=== PATIENT | male | born 1950 | race Caucasian/White ===

== ENCOUNTER 2021-02-08 10:31 | Emergency (ER) | payer MEDICARE, OTHER ==
[2021-02-08 11:35] LABS: BASOPHIL 0.2 % (0-2); EOSINOPHIL 0 % (0-7); HCT 35.9 % (42.0-52.0); HGB 10.6 g/dl (13.2-18.0); LYMPHOCYTE 15.8 % (15-48); MCH 23.7 pg (25.0-31.0); MCHC 29.5 g/dL (32.0-36.0); MCV 80.1 fL (78.0-100.0); MPV 9.6 fL (6.0-9.5); NEUTROPHIL 74.6 % (41-80); NRBC 0; PLT 275 K/uL (150-400); RBC 4.48 M/uL (4.70-6.00); RDW 17.3 % (11.5-14.0); WBC 5.1 K/uL (4.0-10.5)
[2021-02-08 11:47] LABS: LACTIC ACID 1.2 mmol/L (0.4-1.9)
[2021-02-08 11:49] LABS: ALBUMIN 3.6 g/dL (3.4-5.0); BILIRUBIN - TOTAL 0.2 mg/dL (0.2-1.0); CREATININE 2.77 mg/dL (0.67-1.17); POTASSIUM 4.4 mmol/L (3.5-5.1); TOTAL PROTEIN 7.6 g/dL (6.4-8.2)
[2021-02-08 12:23] LABS: BILIRUBIN 1+ mg/dL (NEGATIVE); BLOOD 3+ Ery/uL (NEGATIVE); CLARITY CLOUDY (CLEAR); COLOR RED (YELLOW); GLUCOSE (U) NORMAL (NORMAL); LEUKOCYTES 2+ Leu/uL (NEGATIVE); NITRITE POSITIVE (NEGATIVE); PROTEIN 3+ mg/dL (NEGATIVE); SPECIFIC GRAVITY 1.025 (1.001-1.030); UROBILINOGEN 0.2 mg/dL (0.2-1.0); pH 7.5 (5.0-9.0)
[2021-02-08 12:28] LABS: URINARY RBC TNTC; URINARY WBC TNTC
[2021-02-08 12:29] LABS: BACTERIA 2+
[2021-02-08 12:36] LABS: CORONAVIRUS 2019 SARS-COV-2 NEGATIVE (NEGATIVE); INFLUENZA A NAA NEGATIVE (NEGATIVE)
== END 2021-02-08 19:46 | disposition other institution (70) ==
LOC: FER 10:31
PROVIDERS: Emergency Medicine
DX: N13.6 Pyonephrosis (principal); N17.9 Acute kidney failure, unspecified; K56.7 Ileus, unspecified; I10 Essential (primary) hypertension; Z20.822 Contact with and (suspected) exposure to COVID-19
CPT/HCPCS: 36415; 70450; 71045; 80053; 81001; 83605; 84145; 85025; 87040; 87088; 93005; J0696; J7030; U0002

== ENCOUNTER 2021-03-03 12:09 | Emergency (ER) | payer MEDICARE, OTHER ==
[2021-03-03 13:32] LABS: BASOPHIL 0.2 % (0-2); EOSINOPHIL 0 % (0-7); HCT 31.8 % (42.0-52.0); HGB 9.9 g/dl (13.2-18.0); LYMPHOCYTE 5.9 % (15-48); MCH 23.5 pg (25.0-31.0); MCHC 31.1 g/dL (32.0-36.0); MCV 75.5 fL (78.0-100.0); MONOCYTE 8.4 % (0-12); MPV 9.1 fL (6.0-9.5); NRBC 0; PLT 354 K/uL (150-400); RBC 4.21 M/uL (4.70-6.00); RDW 17.8 % (11.5-14.0); WBC 12.1 K/uL (4.0-10.5)
[2021-03-03 13:50] LABS: BUN/CREAT RATIO (CALC) 16.7 RATIO; CREATININE 2.09 mg/dL (0.67-1.17); POTASSIUM 4.3 mmol/L (3.5-5.1)
[2021-03-03 13:55] LABS: BILIRUBIN 2+ mg/dL (NEGATIVE); BLOOD 3+ Ery/uL (NEGATIVE); CLARITY SLIGHTLY HAZY (CLEAR); COLOR RED (YELLOW); GLUCOSE (U) NORMAL (NORMAL); LEUKOCYTES 3+ Leu/uL (NEGATIVE); NITRITE POSITIVE (NEGATIVE); PROTEIN 3+ mg/dL (NEGATIVE); SPECIFIC GRAVITY <=1.005 (1.001-1.030)
[2021-03-03 13:58] LABS: BACTERIA 2+; URINARY RBC TNTC; URINARY WBC 20-50
[2021-03-03] MEDS ORDERED: AUGMENTIN 875-1 EACH PO (15:58)
== END 2021-03-03 16:26 | disposition home or self-care (01) ==
LOC: FER 12:09
PROVIDERS: Nurse Practitioner Family
DX: T83.098A Other mechanical complication of other urinary catheter, initial encounter (principal); N39.0 Urinary tract infection, site not specified; I12.9 Hypertensive chronic kidney disease with stage 1 through stage 4 chronic kidney disease, or unspecified chronic kidney disease; N18.9 Chronic kidney disease, unspecified
CPT/HCPCS: 36415; 80048; 81001; 85025; 87088; 96365; J0696; J7030

== ENCOUNTER → 2021-03-29 | Day surgery (SDC) | payer MEDICARE, OTHER ==
[~2021-03-29] VITALS: Ht 177.8 cm; Wt 66.7 kg
[~2021-03-29] MED LIST: AUGMENTIN 875-1 EACH PO; CLARITIN10 MG PO; FEOSOL325 MG PO; K-TAB ER20 MEQ PO; NORCO 5-325 TA1 EACH PO
[2021-03-29 08:25] LABS: HCT 31.5 % (42.0-52.0); HGB 9.5 g/dl (13.2-18.0); MCH 22.4 pg (25.0-31.0); MCHC 30.2 g/dL (32.0-36.0); MCV 74.3 fL (78.0-100.0); MPV 9.3 fL (6.0-9.5); RBC 4.24 M/uL (4.70-6.00); WBC 6.7 K/uL (4.0-10.5)
[2021-03-29 08:47] LABS: BILIRUBIN - TOTAL 0.4 mg/dL (0.2-1.0); BUN/CREAT RATIO (CALC) 13.4 RATIO; CREATININE 1.19 mg/dL (0.67-1.17); GLOBULIN (CALCULATION) 4.3 g/dL; POTASSIUM 3.6 mmol/L (3.5-5.1); TOTAL PROTEIN 7.3 g/dL (6.4-8.2)
== END | disposition home or self-care (01) ==
LOC: FAS 07:48
PROVIDERS: Surgery
DX: I87.2 Venous insufficiency (chronic) (peripheral) (principal); C67.9 Malignant neoplasm of bladder, unspecified; I10 Essential (primary) hypertension; D50.9 Iron deficiency anemia, unspecified; Z87.891 Personal history of nicotine dependence
CPT/HCPCS: 36415; 71045; 80053; C1788; J0690; J1100; J1170; J1644; J1885; J2250; J2405; J2704; J3010; J7120